=== PATIENT | male | born 1980 | race Caucasian/White ===

== ENCOUNTER 2016-10-27 15:18 | Outpatient (CLI) | payer OTHER ==
[~2016-10-27 15:18] MED LIST changes: -GADOBUTROL 15 MMOL/15 ML (GADAVIST) VIAL IV ONE
== END 2016-10-27 17:49 | disposition home or self-care (01) ==
LOC: SLEEP 15:18
PROVIDERS: ATTEND Internal Medicine Endocrinology, Diabetes & Metabolism
DX: G47.10 Hypersomnia, unspecified (principal); R06.83 Snoring

== ENCOUNTER → 2016-10-27 | Outpatient (CLI) | payer OTHER ==
[~2016-10-27] MED LIST: ACHD5005 PO; CRS350T PO; CYCL10TA9 PO; DIAZ10TA PO; DIAZ5TAB49 PO; DICY10CA26 PO; GADOBUTROL 15 MMOL/15 ML (GADAVIST) VIAL IV ONE; HYDR-757 PO; HYOS0.1216 PO; OMEP20CA12 PO; ONDA-42 SL; OXYC-12 PO; PNT40TEC PO; PRD20T PO
--- NOTE | 2016-10-27 18:41 | Diagnostic Imaging Report ---
EXAM: MRI BRAIN PITUITARY W/WO CON. INDICATION: HYPOGONADISM. COMPARISON: None. FINDINGS: Minimal nonspecific T2 hyperintensities in the supratentorial white matter. No other abnormal intracranial signal, enhancement, restricted water diffusion, or hemosiderin deposition. Normal morphology including the major midline structures, cerebellopontine angle, and posterior fossa. Specifically, dedicated sequences of the sella demonstrate normal morphology with no suspicious mass or enhancement. There is mild leftward deviation of the pituitary stalk. No hydrocephalus or extra-axial fluid collections. Normal intracranial flow voids. Small mucus retention cyst in the right maxillary sinus. The mastoids are clear. The orbits are negative. Normal bone marrow signal. IMPRESSION: 1. Mild leftward deviation of the pituitary stalk. The morphology of the sella is otherwise unremarkable with no suspicious mass or fluid collection. Normal pituitary enhancement. 2. Minimal nonspecific T2 hyperintensities in the supratentorial white matter. 3. MRI of the brain is otherwise negative. Dictated by: Dictated on workstation # [id number]
== END ==
LOC: RAD 15:15
PROVIDERS: ATTEND Internal Medicine Endocrinology, Diabetes & Metabolism
DX: E29.1 Testicular hypofunction (principal)
CPT/HCPCS: 70553

== ENCOUNTER → 2016-12-19 | Outpatient (CLI) | payer OTHER ==
[~2016-12-19] MED LIST changes: +CATHETER FLUSH 10 ML SYR IV PRN
--- NOTE | 2016-12-19 10:49 | Diagnostic Imaging Report ---
CLINICAL INDICATION: Patient with right upper quadrant pain. COMPARISON: None. PROCEDURE: The patient was administered 5.01 millicuries of technetium 99m Choletec. After 60 minutes of the images, one can of Ensure was drink followed by another 60 minutes of imaging. A nuclear medicine hepatobiliary scan with ejection fraction was performed. FINDINGS: There is prompt uptake and excretion of radiotracer by the liver. Activity is visible in the gallbladder by 10 minutes and the small bowel by 20 minutes. Ejection fraction of the gallbladder is calculated at 39.4% (normal >35%). The gallbladder visibly empties on the scans following the ingestion of Ensure. IMPRESSION: Normal hepatobiliary scan with normal gallbladder ejection fraction. Dictated by: Dictated on workstation # [id number]
== END ==
LOC: CARD 06:55
PROVIDERS: ATTEND Internal Medicine
DX: R10.11 Right upper quadrant pain (principal)
CPT/HCPCS: 78227

== ENCOUNTER 2018-05-01 12:12 | Emergency (ER) | payer OTHER ==
[~2018-05-01] VITALS: Ht 182.9 cm; Wt 90.7 kg
[~2018-05-01 12:12] MED LIST changes: -CATHETER FLUSH 10 ML SYR IV PRN
--- OUTSIDE RECORDS SUMMARY | 2018-05-01 12:18 | XMS REPORT | Continuity of Care Document ---
Author Author [facility] Organization [facility] Address Unknown Phone Unavailable Allergies Active Description Code Type Severity Reaction Onset Reported/Identified Relationship to Patient Clinical Status Yes Penicillins [id number] Drug Allergy Severe NAUSEA 11/13/2012 Yes tobramycin [id number] Drug Allergy Severe HIVES 11/13/2012 Medications There is no data. Problems Date Dx Coded Attending Type Code Diagnosis Diagnosed By 02/12/2014 LISA ROJAS DO Ot 558.9 02/12/2014 LISA ROJAS DO Ot 789.06 12/08/2014 MARTY PUGA ANGEL Ot 276.51 12/08/2014 MARTY PUGA ANGEL Ot 487.1 01/08/2015 MARTY DO ANGEL Ot E78.1 01/08/2015 MARTY DO, ANGEL Ot N44.8 01/08/2015 FERGUSON DO, ANGEL Ot Z00.00 02/28/2016 FERGUSON DO, ANGEL Ot E29.1 TESTICULAR HYPOFUNCTION 02/28/2016 FERGUSON DO, ANGEL Ot N50.9 DISORDER OF MALE GENITAL ORGANS, UNSPECI 02/28/2016 FERGUSON DO, ANGEL Ot N52.9 MALE ERECTILE DYSFUNCTION, UNSPECIFIED 02/28/2016 FERGUSON DO, ANGEL Ot Z00.00 ENCNTR FOR GENERAL ADULT MEDICAL EXAM W/ 03/05/2016 FERGUSON DO, ANGEL Ot E29.1 TESTICULAR HYPOFUNCTION 03/05/2016 FERGUSON DO, ANGEL Ot N50.9 DISORDER OF MALE GENITAL ORGANS, UNSPECI 03/05/2016 MARTY DO, ANGEL Ot N52.9 MALE ERECTILE DYSFUNCTION, UNSPECIFIED 03/05/2016 FERGUSON DO, ANGEL Ot Z00.00 ENCNTR FOR GENERAL ADULT MEDICAL EXAM W/ 10/27/2016 CHANDLER BANKS DO Ot G47.10 HYPERSOMNIA, UNSPECIFIED 10/27/2016 CHANDLER BANKS DO Ot R06.83 SNORING 10/28/2016 DARREN DO, CHANDLER L Ot E29.1 TESTICULAR HYPOFUNCTION 10/28/2016 DARREN DO, CHANDLER L Ot G47.10 HYPERSOMNIA, UNSPECIFIED 10/28/2016 DARREN DO, CHANDLER L Ot R06.83 SNORING 12/17/2016 DARREN DO, CHANDLER L Ot E29.1 TESTICULAR HYPOFUNCTION 12/25/2016 FERGUSON DO, ANGEL Ot E29.1 TESTICULAR HYPOFUNCTION 12/25/2016 FERGUSON DO, ANGEL Ot N50.9 DISORDER OF MALE GENITAL ORGANS, UNSPECI 12/25/2016 FERGUSON DO, ANGEL Ot N52.9 MALE ERECTILE DYSFUNCTION, UNSPECIFIED 12/25/2016 FERGUSON DO, ANGEL Ot Z00.00 ENCNTR FOR GENERAL ADULT MEDICAL EXAM W12/25/2016 DARREN DO, CHANDLER L Ot E29.1 TESTICULAR HYPOFUNCTION 12/25/2016 FERGUSON DO, ANGEL Ot R10.11 RIGHT UPPER QUADRANT PAIN 01/14/2018 FERGUSON DO, ANGEL Ot E29.1 TESTICULAR HYPOFUNCTION 01/14/2018 FERGUSON DO, ANGEL Ot N50.9 DISORDER OF MALE GENITAL ORGANS, UNSPECI 01/14/2018 FERGUSON DO, ANGEL Ot N52.9 MALE ERECTILE DYSFUNCTION, UNSPECIFIED 01/14/2018 FERGUSON DO, ANGEL Ot Z00.00 ENCNTR FOR GENERAL ADULT MEDICAL EXAM W01/14/2018 DARREN DO, CHANDLER L Ot E29.1 TESTICULAR HYPOFUNCTION 01/14/2018 FERGUSON DO, ANGEL Ot R10.11 RIGHT UPPER QUADRANT PAIN Procedures There is no data. Results There is no data. Encounters ACCT No. Visit Date/Time Discharge Status Pt. Type Provider Facility Loc./Unit Complaint [id number] 12/19/2016 06:55:00 12/19/2016 23:59:59 CLS Outpatient MARTY PUGA ANGEL [facility] CARD RUQ PAIN [id number] 10/27/2016 15:15:00 10/27/2016 23:59:59 CLS Outpatient BANKS DO CHANDLER L [facility] RAD HYPOGONADISM [id number] 10/27/2016 15:18:00 10/27/2016 17:49:00 DIS Outpatient CHANDLER BANKS DO [facility] SLEEP SNORING,SLEEP DISTURBANCE [id number] 02/28/2016 10:12:00 02/28/2016 23:59:59 CLS Outpatient ANGEL FERGUSON DO [facility] LAB Z00.00,E29.1,N52.9 [id number] 12/20/2014 15:43:00 12/20/2014 23:59:59 CLS Outpatient ANGEL FERGUSON DO [facility] LAB [id number] 11/27/2014 14:52:00 11/27/2014 23:59:59 CLS Outpatient ANGEL FERGUSON DO [facility] LAB [id number] 02/12/2014 03:12:00 02/12/2014 06:16:00 DIS Emergency LISA ROJAS DO [facility] ER [id number] 11/21/2012 12:15:00 11/21/2012 23:59:59 CLS Outpatient [id number] 11/17/2012 09:19:00 11/17/2012 23:59:59 CLS Outpatient [id number] 11/13/2012 12:55:00 11/14/2012 15:05:00 DIS Inpatient [id number] 11/11/2012 13:32:00 11/11/2012 23:59:59 CLS Outpatient [id number] 08/26/2012 14:27:00 08/26/2012 23:59:59 CLS Outpatient [id number] 12/20/2014 15:44:53 ACT Document Registration
[2018-05-01] MEDS ORDERED: fentaNYL INJECTION 100 MCG/2 ML AMP ONE (12:21)
[2018-05-01] MEDS ORDERED: fentaNYL INJECTION 100 MCG/2 ML AMP IVP ONE ×2 (12:30→13:15)
--- NOTE | 2018-05-01 12:36 | ED Lower Extremity ---
General Stated Complaint: DISLOCATED LT KNEE Source: patient Exam Limitations: no limitations History of Present Illness Date Seen by Provider: May 01, 2018 Time Seen by Provider: 12:20 Initial Comments 38-year-old male who is brought to the emergency room by his after his kneecap dislocated. The patient reports that he was cutting wood when the tree started to fall and he moved quickly slipping on the ice causing his left knee to dislocate. He believes that knee is in place at this time. Onset: just prior to arrival Pain/Injury Location: left knee Method of Injury: twisted Modifying Factors: Worse With Movement Allergies and Home Medications Allergies Coded Allergies: tobramycin (Verified Allergy, Severe, HIVES, 11/13/12) Penicillins (Verified Adverse Reaction, Severe, NAUSEA, 11/13/12) Home Medications Carisoprodol 350 Mg Tablet, 350 MG PO TID Prescribed by: ANGEL FERGUSON on 11/14/12 1155 Dicyclomine Hcl 10 Mg Capsule, 1 EACH PO TID PRN, (Reported) Hydrocodone Bit/Acetaminophen 1 Ea Tablet, 1 EA PO Q4H PRN for PAIN-MODERATE Prescribed by: RAHUL CALL on 05/01/18 1323 Hyoscyamine Sulfate 0.125 Mg Tab, 1-2 EACH PO Q4HR PRN PRN for ABDOMINAL PAIN Prescribed by: LISA ROJAS on 02/12/14 0609 Ondansetron HCl 4 Mg Tab, 4 MG PO Q4H PRN for NAUSEA/VOMITING-1ST LINE Prescribed by: RAHUL CALL on 05/01/18 1409 Ondansetron Hcl 4 Mg Tab, 4 MG SL Q4H FOR NAUSEA AND VOMITING Prescribed by: LISA ROJAS on 02/12/14 0609 Pantoprazole Sod 40 Mg Tab, 40 MG PO DAILY Prescribed by: LISA ROJAS on 02/12/14 0609 Patient Home Medication List Home Medication List Reviewed: Yes Review of Systems Constitutional: no symptoms reported, see HPI Musculoskeletal: see HPI, joint pain (left knee pain) All Other Systems Reviewed Negative Unless Noted: Yes Past Ehoyrlm-Tguxes-Wljvez Hx Past Med/Social Hx: Reviewed Nursing Past Med/Soc Hx Patient Social History Recent Foreign Travel: No Contact w/Someone Who Travel: No Immunizations Up To Date Date of Influenza Vaccine: Nov 28, 2013 Past Medical History Reproductive Disorders: No Back Injury Family Medical History Reviewed Nursing Family Hx No Pertinent Family Hx Physical Exam Vital Signs Vital Signs - First Documented 05/01/18 12:15 Temp 98.6 Pulse 89 Resp 14 B/P (MAP) 117/89 (98) Pulse Ox 98 O2 Delivery Room Air Capillary Refill : Height, Weight, BMI Height: 6'" Weight: 230lbs. oz. 104.066915jm; BMI Method:Stated General Appearance: WD/WN, no apparent distress Cardiovascular: normal peripheral pulses, regular rate, rhythm, no edema, no gallop, no JVD, no murmur Respiratory: chest non-tender, lungs clear, normal breath sounds, no respiratory distress, no accessory muscle use Knees: left knee normal range of motion (the patient did have full range of motion had increased pain with flexion. The patella remained in place with range of motion.), left knee pain Neurologic/Tendon: normal sensation, normal motor functions, normal tendon functions, responds to pain, no evidence tendon injury, other (normal capillary refill and distal pulses present.) Neurologic/Psychiatric: alert, normal mood/affect, oriented x 3 Skin: normal color, warm/dry Progress/Results/Core Measures Results/Orders My Orders Orders - RAHUL CALL Knee, Left, 3 Views (05/01/18 12:26) Fentanyl Injection (Sublimaze Injection (05/01/18 12:30) Fentanyl Injection (Sublimaze Injection (05/01/18 13:15) Hydromorphone Injection (Dilaudid Inject (05/01/18 13:15) Medications Given in ED Current Medications Medications Dose Ordered Sig/Fela Route Start Time Stop Time Status Last Admin Dose Admin Fentanyl Citrate 50 mcg ONCE ONCE IVP 05/01/18 12:30 05/01/18 12:31 DC 05/01/18 12:33 50 MCG Fentanyl Citrate 50 mcg ONCE ONCE IVP 05/01/18 13:15 05/01/18 13:16 DC 05/01/18 13:11 50 MCG Hydromorphone HCl 1 mg ONCE ONCE IV 05/01/18 13:15 05/01/18 13:16 DC 05/01/18 13:25 1 MG Vital Signs/I&O 05/01/18 05/01/18 12:15 14:03 Temp 98.6 Pulse 89 86 Resp 14 14 B/P (MAP) 117/89 (98) 106/60 (75) Pulse Ox 98 98 O2 Delivery Room Air Room Air Progress Progress Note : Time: 12:30 Progress Note I have seen and evaluated the patient. I was able to relocate the patella with gentle manipulation. I've discussed the case with Dr. Wang. He wanted the patient placed in a knee immobilizer. The patient was also given crutches due to increased pain with ambulation. Dr. Wang requests to see the patient in his office next week. The patient's pain had marked improvement with Dilaudid. The patient agrees with plan of care, plans for discharge, return precautions were given. Diagnostic Imaging Diagonstic Imaging: Xray Plain Films/CT/US/NM/MRI: knee Comments NAME: EDMUNDO VARGAS [facility] REC#: [id number] PT STATUS: REG ER : 1980 PHYSICIAN: RAHUL CALL ADMIT DATE: 05/01/18/ER Signed Date of Exam:05/01/18 KNEE, LEFT, 3 VIEWS INDICATION: Left patellar dislocation. Pain. FINDINGS: Three views of the left knee show superior subluxation of the patella with no fracture evident. No significant joint effusion is evident. IMPRESSION: There is superior subluxation of the patella with no other abnormality seen. Dictated by: Dictated on workstation # [id number] Dict: 05/01/18 1246 Trans: 05/01/18 1259 [id number] Interpreted by: YASMANY MILAN MD Electronically signed by: YASMANY MILAN MD 05/01 Reviewed: Reviewed by Me Departure Impression Primary Impression: Subluxation of left patella Qualified Codes: S83.002A - Unspecified subluxation of left patella, initial encounter Disposition: HOME, SELF-CARE Condition: Stable/Unchanged Departure-Patient Inst. Decision time for Depature: 13:02 Referrals: ANGEL FERGUSON DO (PCP/Family) Primary Care Physician SEDRICK WANG MD Patient Instructions: DISLOCATED-JOINT Add. Discharge Instructions: Take medications as directed. Follow-up with Dr. Wang by calling his office first thing Thursday morning for an appointment time. Use the crutches and wear the knee immobilizer at all times. Return back to the emergency room for worsening symptoms or concerns as needed. All discharge instructions were reviewed with patient, and/or family. Scripts Ondansetron HCl (Zofran) 4 Mg Tab 4 MG PO Q4H PRN for NAUSEA/VOMITING-1ST LINE, #20 TAB Prov: RAHUL CALL 05/01/18 Hydrocodone Bit/Acetaminophen (LORTAB 7.5 MG TABLET) 1 Ea Tablet 1 EA PO Q4H PRN for PAIN-MODERATE, #20 TAB Prov: RAHUL CALL 05/01/18 Work/School Note: Work Release Form Date Seen in the Emergency Department: May 01, 2018 Return to Work: May 07, 2018 Restrictions: Need Release from Doctor RAHUL CALL May 01, 2018 12:36
--- NOTE | 2018-05-01 12:51 | Diagnostic Imaging Report ---
INDICATION: Left patellar dislocation. Pain. FINDINGS: Three views of the left knee show superior subluxation of the patella with no fracture evident. No significant joint effusion is evident. IMPRESSION: There is superior subluxation of the patella with no other abnormality seen. Dictated by: Dictated on workstation # [id number]
[2018-05-01] MEDS ORDERED: HYDROmorphone 2 MG/ML VIAL (DILAUDID) IV ONE (13:15)
[2018-05-01] MEDS ORDERED: HYDR-34 PO (13:23)
[2018-05-01 14:03] VITALS: BP 106/60
[2018-05-01] MEDS ORDERED: ONDN4T PO (14:09)
== END 2018-05-01 14:11 | disposition home or self-care (01) ==
LOC: EDUNIT# 12:12 → ER 12:14
DX: S83.002A Unspecified subluxation of left patella, initial encounter (principal); Z88.0 Allergy status to penicillin; Z88.1 Allergy status to other antibiotic agents; W00.0XXA Fall on same level due to ice and snow, initial encounter; X50.1XXA Overexertion from prolonged static or awkward postures, initial encounter
CPT/HCPCS: 73562

== ENCOUNTER → 2018-05-07 | Outpatient (CLI) | payer OTHER ==
[~2018-05-07] MED LIST changes: +HYDR-34 PO; +ONDN4T PO
--- NOTE | 2018-05-07 09:46 | Diagnostic Imaging Report ---
PROCEDURE: MRI left joint lower extremity without contrast. TECHNIQUE: Multiplanar, multisequence non contrast-enhanced MRI of the left lower extremity was accomplished. INDICATION: Left knee dislocation, complaining of pain and swelling. No prior studies are available for comparison. FINDINGS: There is large joint effusion. There is a bone bruise involving the lateral femoral condyle. There is also edema within the patella. Contusion pattern is consistent with lateral patellar dislocation/relocation. There is a large chondral defect involving the lateral patellar facet. There is a filling defect in the medial aspect of the knee adjacent to the medial femoral condyle. In addition, there is abnormal thickening and signal and apparent tear involving the medial patellar retinaculum. The ACL and PCL are intact. Medial and lateral menisci appear intact. No tear or displaced meniscal fragment is seen. The lateral collateral ligament complex appears intact. There is complete tear to the medial collateral ligament complex mid third. Extensor mechanism is unremarkable. IMPRESSION: 1. Contusion pattern is consistent with lateral patellar dislocation/relocation. There is a large chondral defect involving the lateral patellar facet. Chondral loose body may be located in the medial aspect of the joint. There is a tear involving the medial patellar retinaculum as well as complete tear to the mid third of the medial collateral ligament complex. There is a large joint effusion. 2. ACL is intact. No meniscal tear is detected. Dictated by: Dictated on workstation # [id number]
== END ==
LOC: RAD 07:17
PROVIDERS: ATTEND Nurse Practitioner
DX: S83.412A Sprain of medial collateral ligament of left knee, initial encounter (principal); S86.812A Strain of other muscle(s) and tendon(s) at lower leg level, left leg, initial encounter; M94.8X8 Other specified disorders of cartilage, other site
CPT/HCPCS: 73721

== ENCOUNTER 2018-05-17 05:36 | Outpatient (CLI) | payer OTHER ==
[~2018-05-17] VITALS: Ht 182.9 cm; Wt 90.7 kg
[2018-05-17] MEDS ORDERED: LACT1CAP62 PO (10:41)
== END 2018-05-17 10:54 | disposition home or self-care (01) ==
LOC: PREOP 05:36
PROVIDERS: ATTEND Orthopaedic Surgery
DX: Z01.818 Encounter for other preprocedural examination (principal)

== ENCOUNTER 2018-05-19 08:30 | Day surgery (SDC) | payer OTHER ==
--- NOTE | 2018-05-12 17:20 | HISTORY AND PHYSICAL ---
DATE OF SERVICE: 05/19/2018 ADMISSION HISTORY AND PHYSICAL DATE OF ADMISSION: 05/19/2018 This will be for outpatient surgery on 05/19/2018, which will be his date of service and date of surgery. HISTORY OF PRESENT ILLNESS: The patient is a 38-year-old gentleman who injured his left knee when he was cutting wood. He slipped and felt that his patella dislocated. He tried to ambulate and it dislocated again. He underwent an MRI, which reveals disruption of his medial retinaculum as well as a loose body that appears to have arisen from the lateral patellar facet. Due to the loose body and continued instability with pain, the patient has elected to proceed with surgical intervention. REVIEW OF SYSTEMS: No chest pain or shortness of breath. No dysuria. PAST MEDICAL HISTORY: Seizures as a baby, hypogonadism, reflux, IBS. PAST SURGICAL HISTORY: Vasectomy. FAMILY HISTORY: Hypertension, diabetes. PRIMARY CARE PROVIDER: Dr. Han. MEDICATIONS: Bentyl, sildenafil, and hydrocodone. ALLERGIES: NASONEX, TOBRAMYCIN, PENICILLIN. SOCIAL HISTORY: The patient is a former smoker. Denies alcohol use. PHYSICAL EXAMINATION: GENERAL: The patient is well-developed, well-nourished, in no acute distress. HEENT: Normocephalic, atraumatic. Pupils are equal, round, reactive to light. Oropharynx is clear. NECK: Supple. No lymphadenopathy. LUNGS: Clear to auscultation bilaterally. HEART: Regular rate and rhythm. ABDOMEN: Soft, nontender, nondistended. EXTREMITIES: On the left knee, the patient ambulates with an antalgic gait. There is a moderate effusion noted. There is no warmth or erythema. Range of motion actively 0/0/90. He is tender along his medial retinaculum. He cannot perform straight leg raise. He has 1+ valgus laxity, no varus laxity, negative anterior and posterior drawer. 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 PLAN: Left knee arthroscopy with loose body excision, chondroplasty, possible microfracture and open medial retinacular repair. The risks, benefits, options, ramifications and recovery were discussed at length with the patient. He understands and wishes to proceed. Job ID: [id number] DocumentID: [id number] Dictated Date: 05/12/2018 15:37:03 Golf Cart Repairer Date: 05/12/2018 16:34:40 Dictated By: SEDRICK PEDROZA MD
[~2018-05-19] VITALS: Ht 182.9 cm; Wt 90.7 kg
[~2018-05-19 08:30] MED LIST changes: +LACT1CAP62 PO
[2018-05-19 08:45] VITALS: BP 135/82
--- OUTSIDE RECORDS SUMMARY | 2018-05-19 08:45 | XMS REPORT | Continuity of Care Document ---
Author Author [facility] Organization [facility] Address Unknown Phone Unavailable Allergies Active Description Code Type Severity Reaction Onset Reported/Identified Relationship to Patient Clinical Status Yes Penicillins [id number] Drug Allergy Severe NAUSEA 11/13/2012 Yes tobramycin [id number] Drug Allergy Severe HIVES 11/13/2012 Medications There [...] DISORDER OF MALE GENITAL ORGANS, UNSPECI 03/05/2016 FERGUSON DO, ANGEL Ot N52.9 MALE ERECTILE DYSFUNCTION, UNSPECIFIED 03/05/2016 FERGUSON DO, ANGEL Ot Z00.00 ENCNTR FOR GENERAL ADULT MEDICAL EXAM W/ 10/27/2016 CHANDLER BANKS DO Ot G47.10 HYPERSOMNIA, UNSPECIFIED 10/27/2016 CHANDLER BANKS DO Ot R06.83 SNORING 10/28/2016 DARREN DO, CHANDLER L Ot E29.1 TESTICULAR HYPOFUNCTION 10/28/2016 DARREN DO, CHANDLER L Ot G47.10 HYPERSOMNIA, UNSPECIFIED 10/28/2016 DARREN PUGA, CHANDLER L Ot R06.83 SNORING 12/17/2016 DARREN [...] FOR GENERAL ADULT MEDICAL EXAM W01/14/2018 DARREN PUGA, CHANDLER L Ot E29.1 TESTICULAR HYPOFUNCTION 01/14/2018 FERGUSON DO, ANGEL Ot R10.11 RIGHT UPPER QUADRANT PAIN 05/01/2018 FERGUSON DO, ANGEL Ot E29.1 TESTICULAR HYPOFUNCTION 05/01/2018 FERGUSON DO, ANGEL Ot N50.9 DISORDER OF MALE GENITAL ORGANS, UNSPECI 05/01/2018 FERGUSON DO, ANGEL Ot N52.9 MALE ERECTILE DYSFUNCTION, UNSPECIFIED 05/01/2018 FERGUSON DO, ANGEL Ot Z00.00 ENCNTR FOR GENERAL ADULT MEDICAL EXAM W05/01/2018 DARREN DO, CHANDLER L Ot E29.1 TESTICULAR HYPOFUNCTION 05/01/2018 FERGUSON DO, ANGEL Ot R10.11 RIGHT UPPER QUADRANT PAIN 05/01/2018 FERGUSON DO, ANGEL Ot E29.1 TESTICULAR HYPOFUNCTION 05/01/2018 MARTY DO, ANGEL Ot N50.9 DISORDER OF MALE GENITAL ORGANS, UNSPECI 05/01/2018 MARTY DO, ANGEL Ot N52.9 MALE ERECTILE DYSFUNCTION, UNSPECIFIED 05/01/2018 MARTY DO, ANGEL Ot Z00.00 ENCNTR FOR GENERAL ADULT MEDICAL EXAM W/ 05/01/2018 CHANDLER BANKS DO Ot E29.1 TESTICULAR HYPOFUNCTION 05/01/2018 MARTY DO, ANGEL Ot R10.11 RIGHT UPPER QUADRANT PAIN 05/04/2018 ONEYDA RAHUL Ot M25.562 PAIN IN LEFT KNEE 05/04/2018 KEATONRAHUL MOY Ot S83.002A UNSPECIFIED SUBLUXATION OF LEFT PATELLA, 05/04/2018 RAHUL CALL Ot W00.0XXA FALL ON SAME LEVEL DUE TO ICE AND SNOW, 05/04/2018 RAHUL CALL Ot X50.1XXA OVEREXERTION FROM PROLONGED STATIC OR AW 05/04/2018 RAHUL CALL Ot Z88.0 ALLERGY STATUS TO PENICILLIN 05/04/2018 RAHUL CALL Ot Z88.1 ALLERGY STATUS TO OTHER ANTIBIOTIC AGENT 05/09/2018 ELISSA MITCHELL Ot M94.8X8 OTHER SPECIFIED DISORDERS OF CARTILAGE, 05/09/2018 ELISSA MITCHELL Ot S83.412A SPRAIN OF MEDIAL COLLATERAL LIGAMENT OF 05/09/2018 ELISSA MITCHELL Ot S86.812A STRAIN OF MUSC/TEND AT LOWER LEG LEVEL, 05/17/2018 SEDRICK PEDROZA MD Ot Z01.818 ENCOUNTER FOR OTHER PREPROCEDURAL EXAMIN 05/18/2018 SEDRICK PEDROZA MD Ot Z01.818 ENCOUNTER FOR OTHER PREPROCEDURAL EXAMIN Procedures There is no data. Results There is no data. Encounters ACCT No. Visit Date/Time Discharge Status Pt. Type Provider Facility Loc./Unit Complaint [id number] 05/17/2018 05:36:00 05/17/2018 10:54:00 DIS Outpatient SEDRICK PEDROZA MD [facility] PREOP LEFT PATELLA DISLOCATION,LOOSE BODY [id number] 05/07/2018 07:17:00 05/07/2018 23:59:59 CLS Outpatient ELISSA MITCHELL [facility] RAD CHRONIC INSTABILITY OF LT KNEE [id number] 05/01/2018 12:14:00 05/01/2018 14:11:00 DIS Outpatient RAHUL CALL [facility] ER DISLOCATED LT KNEE [id number] 12/19/2016 06:55:00 12/19/2016 23:59:59 CLS Outpatient MARTY PUGA ANGEL [facility] CARD RUQ PAIN [id number] 10/27/2016 15:15:00 10/27/2016 23:59:59 CLS Outpatient CHANDLER BANKS DO L [facility] RAD HYPOGONADISM [id number] 10/27/2016 15:18:00 10/27/2016 17:49:00 DIS Outpatient CHANDLER BANKS DO L [facility] SLEEP SNORING,SLEEP DISTURBANCE [id number] 02/28/2016 10:12:00 02/28/2016 23:59:59 CLS Outpatient MARTY DO ANGEL [facility] LAB Z00.00,E29.1,N52.9 [id number] 12/20/2014 15:43:00 12/20/2014 23:59:59 CLS Outpatient MARTY DO ANGEL [facility] LAB [id number] 11/27/2014 14:52:00 11/27/2014 23:59:59 CLS Outpatient MARTY DO ANGEL [facility] LAB [id number] 02/12/2014 03:12:00 02/12/2014 06:16:00 DIS Emergency LISA ROJAS DO [facility] ER [id number] 11/21/2012 12:15:00 11/21/2012 23:59:59 CLS Outpatient [id number] 11/17/2012 09:19:00 11/17/2012 23:59:59 CLS Outpatient [id number] 11/13/2012 12:55:00 11/14/2012 15:05:00 DIS Inpatient [id number] 11/11/2012 13:32:00 11/11/2012 23:59:59 CLS Outpatient [id number] 08/26/2012 14:27:00 08/26/2012 23:59:59 CLS Outpatient [id number] 05/19/2018 08:30:00 ACT Outpatient KASIA VITAL, SEDRICK [facility]ills [facility] LEFT PATELLA DISLOCATION,LOOSE BODY [facility] 12/20/2014 15:44:53 ACT Document Registration
[2018-05-19] MEDS: LACTATED RINGERS 1,000 ML IV PRN ×2 (09:05→12:06)
[2018-05-19] MEDS ORDERED: CLINDAMYCIN 600 MG/50 ML IVPB 50 ML IV ONE (09:15)
[2018-05-19] MEDS ORDERED: HYDROcodone/APAP 7.5 MG/325 MG (LORTAB, LORCET PLUS) TABLET PO PRN (09:30)
--- NOTE | 2018-05-19 09:30 | Progress Note-Pre Operative ---
Pre-Operative Progress Note H&P Reviewed The H&P was reviewed, patient examined and no changes noted. Date Seen by Provider: May 19, 2018 Time Seen by Provider: : Date H&P Reviewed: May 19, 2018 Time H&P Reviewed: 09:30 Pre-Operative Diagnosis: left patella instability, chondroamalacia and loose body SEDRICK PEDROZA MD May 19, 2018 09:30
--- NOTE | 2018-05-19 09:32 | Progress Note-Post Operative ---
Post-Operative Progess Note Surgeon (s)/Civil Rights Attorney (s) Surgeon SEDRICK PEDROZA MD Civil Rights Attorney: Newton Thompson Pre-Operative Diagnosis left knee medial retinaculum tear, chondromalacia and loose body Post-Operative Diagnosis left knee medial retinaculm tear, chondral defect of the patella, lateral meniscus tear, chondromalacia of the lateral tibial plateau and loose body Procedure & Operative Findings Date of Procedure 05/19/18 Procedure Performed/Findings left knee medial retinacular repair, arthroscopic chondroplasty of the lateral tibial plateau, microfracture of patella, partial lateral meniscectomy and loose body removal Anesthesia Type GETA Estimated Blood Loss Estimated blood loss (mL): minimal Specimens/Packing Specimens Removed none Packing: none SEDRICK PEDROZA MD May 19, 2018 09:32
[2018-05-19] MEDS ORDERED: MIDAZOLAM 2 MG/2 ML (VERSED) VIAL ONE ×2 (09:33→10:23)
[2018-05-19] MEDS ORDERED: WATER (STERILE) FOR INJECTION 10 ML ONE (09:54)
[2018-05-19] MEDS ORDERED: FAMOTIDINE 20MG/2ML IV (PEPCID) ONE (09:54)
[2018-05-19] MEDS ORDERED: ceFAZolin INJECTION 1,000 MG ONE (09:54)
[2018-05-19] MEDS ORDERED: morphine PF (DURAMORPH) 10 MG/10 ML AMP ONE (10:11)
[2018-05-19] MEDS ORDERED: BUPIVACAINE 0.25% 30 ML (SENSORCAINE) VIAL ONE (10:11)
[2018-05-19] MEDS ORDERED: ceFAZolin INJECTION 1,000 MG in WATER (STERILE) FOR INJECTION 10 ML IV ONE (10:15)
[2018-05-19] MEDS ORDERED: MIDAZOLAM 2 MG/2 ML (VERSED) VIAL IVP ONE (10:15)
[2018-05-19] MEDS ORDERED: FAMOTIDINE 20MG/2ML IV (PEPCID) IVP ONE (10:15)
[2018-05-19] MEDS ORDERED: ONDANSETRON 4 MG/2 ML (SDV) Z0FRAN ONE ×2 (10:22→11:47)
[2018-05-19] MEDS ORDERED: LIDOCAINE PF 2% 5 ML (XYLOCAINE) VIAL ONE (10:22)
[2018-05-19] MEDS ORDERED: proPOfol 200 MG/20 ML (DIPRIVAN) VIAL IV ONE (10:22)
[2018-05-19] MEDS ORDERED: fentaNYL INJECTION 100 MCG/2 ML AMP ONE (10:23)
[2018-05-19] MEDS ORDERED: SEVOFLURANE (ULTANE) 15 ML INHAL SOLN ONE ×5 (10:25→11:21)
[2018-05-19] MEDS ORDERED: DEXAMETHASONE 10 MG/ML (DECADRON) 1 ML VIAL ONE (11:21)
[2018-05-19] MEDS ORDERED: morphine INJ 10 MG/ML 1ML (SYR OR VIAL) IVP ONE (11:45)
[2018-05-19] MEDS ORDERED: ONDANSETRON 4 MG/2 ML (SDV) Z0FRAN IVP PRN (11:45)
[2018-05-19] MEDS ORDERED: PROMETHAZINE INJ 25 MG/ML (PHENERGAN) AMP IVP ONE (11:45)
[2018-05-19] MEDS ORDERED: MEPERIDINE (DEMEROL) INJ 50 MG/ML IVP ONE (11:45)
[2018-05-19] MEDS ORDERED: HYDROmorphone 2 MG/ML VIAL (DILAUDID) IV ONE (11:45)
[2018-05-19] MEDS ORDERED: morphine INJ 10 MG/ML 1ML (SYR OR VIAL) ONE (11:46)
[2018-05-19] MEDS ORDERED: HYDROmorphone 2 MG/ML VIAL (DILAUDID) ONE (11:46)
[2018-05-19 12:50] VITALS: BP 136/90
[2018-05-19] MEDS ORDERED: ONDANSETRON 4 MG/2 ML (SDV) Z0FRAN IVP ONE ×2 (13:00→15:45)
[2018-05-19] MEDS ORDERED: HYDR-3816 PO (13:19)
[2018-05-19 13:20] VITALS: BP 123/77
[2018-05-19 13:50] VITALS: BP 131/75
--- NOTE | 2018-05-19 13:59 | OPERATIVE REPORT ---
DATE OF SERVICE: 05/19/2018 PREOPERATIVE DIAGNOSES: 1. Left knee medial retinaculum tear. 2. Left knee chondral defect of the patella. 3. Left knee loose body. POSTOPERATIVE DIAGNOSES: 1. Left knee medial retinaculum tear. 2. Left knee chondral defect of the patella. 3. Left knee loose body. 4. 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 5. Left knee lateral meniscus tear. PROCEDURES: 1. Left knee open medial retinacular repair. 2. Left knee arthroscopic loose body removal. 3. Left knee arthroscopic microfracture of the patella. 4. Left knee arthroscopic partial lateral meniscectomy. 5. Left knee arthroscopic chondroplasty of the lateral tibial plateau. SURGEON: Kory Wang MD. ENGINE REPAIRER SERVICE: Newton Thompson, who assisted throughout the procedure and closed the incisions. ANESTHESIA: General endotracheal by Ivan Candelario CRNA. TOURNIQUET TIME: 7 minutes at 300 mmHg. ESTIMATED BLOOD LOSS: Minimal. DRAINS: None. COMPLICATIONS: None. POSTOP PLAN: Toe touch weightbearing for 2 weeks and 0 to 90 degrees for 2 weeks. STATEMENT OF NECESSITY: The patient is a 38-year-old gentleman, who sustained two patellar dislocations few weeks ago. He was found by MRI to have a medial retinacular disruption as well as patella chondral defect and loose body. Because of this, the patient elected to proceed with surgical intervention. Examination under anesthesia revealed no gross instability of the patella. Range of motion was 0/0/140 with negative Ines, negative anterior and posterior drawer. No varus and valgus laxity and negative pivot shift. ARTHROSCOPIC FINDINGS: The patella demonstrated a 1 x 1 cm chondral defect in the superior medial facet. The medial gutter demonstrated the 1 x 1 cm loose body. Lateral gutter was clear. The trochlea demonstrated no gross chondral abnormalities. Medial compartment demonstrated no meniscal or chondral pathology. The ACL and PCL were intact. The lateral compartment demonstrated grade II chondral defect in the central portion of the tibial plateau in an 8 x 10 area and a flap tear of the 12 o'clock position of the lateral meniscus. DESCRIPTION OF PROCEDURE: After risks and benefits of the procedure were discussed and questions were answered, an informed consent was signed and placed on the chart and the operative site was confirmed in the preoperative area initialed by the surgeon. The patient was then transported to the operating room and after adequate levels of general endotracheal anesthetic were obtained, a timeout was called confirming the operative site. Examination under anesthesia was performed. The above findings were noted. Left lower extremity was prepped and draped in the usual sterile fashion. The knee joint was injected with 60 mL of fluid. A standard inferolateral portal was placed with the arthroscope under direct visualization and inferior medial portal was created. The menisci and cruciates were carefully probed with the above findings as noted. The unstable chondral flap and the lateral tibial plateau was debrided with a shaver back to a stable edge as was the posterior horn of the lateral meniscus debrided back with a shaver. The loose body was retrieved with a grasper and removed without difficulty from the medial gutter. The remainder of the knee joint was vigorously inspected with the arthroscope with no further loose bodies noted. The patellar defect was debrided back to a stable edge and a microfracture was performed with a curved awl with a good blood return noted. The knee was copiously irrigated. The port sites were closed with 4-0 nylon in a simple interrupted fashion. The tourniquet was then inflated and a parapatellar medial incision was made. An arthrotomy was performed over the superior one half distance of the patella. A [id number] repair advancing the VMO and retinaculum was performed with an excellent repair obtained using a #2 Tevdek. The wound was copiously irrigated. Tourniquet was deflated. Pressure was used for hemostasis. A 2-0 Vicryl was used to reapproximate the subcutaneous tissue. Joshua were used on the skin. The knee joint was injected with Duramorph. Portal sites and incision were infiltrated with a plain Marcaine. A soft dressing and brace were applied and the patient was transported to the recovery room awake and in stable condition. Job ID: [id number] DocumentID: [id number] Dictated Date: 05/19/2018 11:32:31 Hamper Maker Date: 05/19/2018 13:58:37 Dictated By: KORY WANG MD
--- NOTE | 2018-05-19 14:40 | NUR ---
PT C/O DIZZINESS ET NAUSEA. DR CORDERO NOTIFIED. ORDERS REC'D.
--- NOTE | 2018-05-19 14:41 | Anesthesia-General Post-Op ---
General Patient Condition Mental Status/LOC: Same as Preop Cardiovascular: Satisfactory Nausea/Vomiting: Absent Respiratory: Satisfactory Pain: Controlled Complications: Absent Post Op Complications Complications None Follow Up Care/Instructions Patient Instructions None needed. Anesthesia/Patient Condition Patient Condition Patient was seen after the procedure and he was doing well, no complaints, stable vital signs, no apparent adverse anesthesia problems. JAMILA CORDERO DO May 19, 2018 14:41
[2018-05-19 15:15] VITALS: BP 131/75
--- NOTE | 2018-05-19 15:18 | Physical Therapy Progress Note ---
Therapy Progress Note Pt and spouse report he has been using crutches so they don't feel gait training is indicated. Reviewed WB status with patient. Orders notes PWB, but patient reports he was told TTWB, therefore educated pt and TTWB status. Adjusted crutches to an appropriate height. No charge rendered. Visit only. LUIS MILLER PT May 19, 2018 15:18
== END 2018-05-19 15:20 | disposition home or self-care (01) ==
LOC: SDC 08:30
PROVIDERS: ATTEND Orthopaedic Surgery
DX: S86.812A Strain of other muscle(s) and tendon(s) at lower leg level, left leg, initial encounter (principal); M22.42 Chondromalacia patellae, left knee; M23.42 Loose body in knee, left knee; M23.252 Derangement of posterior horn of lateral meniscus due to old tear or injury, left knee; X58.XXXA Exposure to other specified factors, initial encounter; K21.9 Gastro-esophageal reflux disease without esophagitis; Z79.899 Other long term (current) drug therapy; Z88.0 Allergy status to penicillin; Z11.2 Encounter for screening for other bacterial diseases
CPT/HCPCS: 27599; 29879; 29881; G0289; 87081

== ENCOUNTER → 2020-05-09 | Outpatient (CLI) | payer OTHER ==
[2020-05-09 08:05] LABS: HEMATOCRIT 48 % (40-54); HEMOGLOBIN 15.6 G/DL (13.3-17.7); MEAN CORPUSCULAR HEMOGLOBIN 29 PG (25-34); MEAN CORPUSCULAR HGB CONC 33 G/DL (32-36); MEAN CORPUSCULAR VOLUME 87 FL (80-99); MEAN PLATELET VOLUME 10.9 FL (7.4-10.4); PLATELET COUNT 226 10^3/uL (130-400); WHITE BLOOD COUNT 8.2 10^3/uL (4.3-11.0)
[2020-05-09 08:06] LABS: BASOPHILS # (AUTO) 0.1 10^3/uL (0.0-0.1); BASOPHILS % (AUTO) 1 % (0-10); EOSINOPHILS # (AUTO) 0.2 10^3/uL (0.0-0.3); EOSINOPHILS % (AUTO) 2 % (0-10); LYMPHOCYTES # (AUTO) 2.2 X 10^3 (1.0-4.0); LYMPHOCYTES % (AUTO) 27 % (12-44); MONOCYTES # (AUTO) 0.6 X 10^3 (0.0-1.0); MONOCYTES % (AUTO) 8 % (0-12); NEUTROPHILS # (AUTO) 5.1 X 10^3 (1.8-7.8); NEUTROPHILS % (AUTO) 62 % (42-75)
[2020-05-09 08:54] LABS: ALANINE AMINOTRANSFERASE 17 U/L (0-55); ALBUMIN 4.7 GM/DL (3.2-4.5); ALKALINE PHOSPHATASE 63 U/L (40-136); BILIRUBIN,TOTAL 0.7 MG/DL (0.1-1.0); BUN/CREATININE RATIO 15; CALCIUM 8.9 MG/DL (8.5-10.1); CARBON DIOXIDE 30 MMOL/L (21-32); CHLORIDE 104 MMOL/L (98-107); CREATININE SERUM 1.02 MG/DL (0.60-1.30); GFR ESTIMATED > 60; GLUCOSE 116 MG/DL (70-105); POTASSIUM 4.9 MMOL/L (3.6-5.0); SODIUM 139 MMOL/L (135-145); TOTAL PROTEIN 7.7 GM/DL (6.4-8.2)
[2020-05-09 14:34] LABS: TRIGLYCERIDES 112 MG/DL (<150); VLDL CHOLESTEROL 22 MG/DL (5-40)
[2020-05-09 14:39] LABS: CHOLESTEROL 214 MG/DL (< 200); HDL CHOLESTEROL 55 MG/DL (40-60)
== END ==
LOC: LAB FS 07:15
PROVIDERS: ATTEND Family Medicine
DX: Z00.01 Encounter for general adult medical examination with abnormal findings (principal); N39.43 Post-void dribbling; R53.83 Other fatigue
CPT/HCPCS: 36415; 80053; 80061; 83036; 84153; 85025

== ENCOUNTER → 2020-09-07 | Outpatient (CLI) | payer OTHER ==
--- NOTE | 2020-09-07 09:51 | Diagnostic Imaging Report ---
PROCEDURE: US Scrotum. TECHNIQUE: Multiple real-time grayscale images were obtained over the scrotum in various projections bilaterally. INDICATION: Left testicular lump. Right testicle measures 4.9 x 2.6 x 3.0 cm and the left testicle measures 4.6 x 2.5 x 3.6 cm. Both testes show homogeneous echotexture. No discrete testicular mass is detected. There is blood flow to both testes. Bilateral epididymis are unremarkable apart from a tiny cyst in the left epididymal head. No hydrocele is identified. There is a varicocele on the left. IMPRESSION: 1. No evidence of testicular mass or vascular compromise. 2. Left varicocele. Dictated by: Dictated on workstation # [id number]
== END ==
LOC: RAD 09:00
PROVIDERS: ATTEND Family Medicine
DX: I86.1 Scrotal varices (principal)
CPT/HCPCS: 76870

== ENCOUNTER 2022-07-11 11:27 | Outpatient (CLI) | payer OTHER | END 2022-07-11 11:46 | LOC: SLEEP 11:27 | PROVIDERS: ATTEND Nurse Practitioner Family | DX: G47.33 Obstructive sleep apnea (adult) (pediatric) (principal) | CPT/HCPCS: G0399 ==

== ENCOUNTER → 2022-08-01 | Outpatient (CLI) | payer OTHER ==
[2022-08-01 09:41] LABS: HEMATOCRIT 46 % (40-54); HEMOGLOBIN 15.7 g/dL (13.3-17.7); MEAN CORPUSCULAR HEMOGLOBIN 29 pg (25-34); MEAN CORPUSCULAR HGB CONC 34 g/dL (32-36); MEAN CORPUSCULAR VOLUME 85 fL (80-99); MEAN PLATELET VOLUME 10.5 fL (9.0-12.2); PLATELET COUNT 249 10^3/uL (130-400); WHITE BLOOD COUNT 9.5 10^3/uL (4.3-11.0)
[2022-08-01 09:50] LABS: ALBUMIN 4.4 GM/DL (3.2-4.5); POTASSIUM 4.5 MMOL/L (3.6-5.0)
[2022-08-01 09:51] LABS: CALCIUM 9.5 MG/DL (8.5-10.1)
[2022-08-01 09:53] LABS: TOTAL PROTEIN 8.1 GM/DL (6.4-8.2)
[2022-08-01 09:55] LABS: BILIRUBIN,TOTAL 0.5 MG/DL (0.1-1.0)
[2022-08-01 09:56] LABS: CREATININE SERUM 1.13 MG/DL (0.60-1.30)
[2022-08-01 10:21] LABS: FREE T4 (FREE THYROXINE) 0.88 NG/DL (0.70-1.48)
== END ==
LOC: LAB 09:20
PROVIDERS: ATTEND Nurse Practitioner Family
DX: Z00.00 Encounter for general adult medical examination without abnormal findings (principal)
CPT/HCPCS: 36415; 80053; 80061; 84439; 84443; 85027